=== PATIENT | female | born 1970 | race Caucasian/White ===

== ENCOUNTER 2017-03-14 18:17 | Inpatient (IN) | payer OTHER ==
[2017-03-14] MEDS: ONDANSETRON (ODT) 4 MG TAB ODT (20:49)
[2017-03-14 20:51] LABS: WHITE BLOOD COUNT 5.9 10^3/ul (4.8-10.8)
[2017-03-14 20:51] LABS: ABNORMAL IP MESSAGE 1; HEMATOCRIT 25.7 % (37.0-47.0); MEAN CORPUSCULAR HEMOGLOBIN 15.3 pg (29.0-33.0); MEAN CORPUSCULAR HGB CONC 25.7 g/dl (32.0-37.0); MEAN CORPUSCULAR VOLUME 59.6 fl (82.0-101.0); MEAN PLATELET VOLUME 8.8 fl (7.4-10.4); PLATELET COUNT 382 10^3/UL (140-415); RED BLOOD COUNT 4.31 10^6/ul (4.20-5.40); RED CELL DISTRIBUTION WIDTH 21.3 % (11.5-14.5)
[2017-03-14 21:07] LABS: ALANINE AMINOTRANSFERASE 28 IU/L (13-69); ALBUMIN 4.4 g/dl (3.3-4.9); ALBUMIN/GLOBULIN RATIO 1.25; ALKALINE PHOSPHATASE 69 IU/L (42-121); ANION GAP 18 (8-16); ASPARTATE AMINO TRANSFERASE 23 IU/L (15-46); BILIRUBIN,INDIRECT 0.2 mg/dl (0-1.1); BILIRUBIN,TOTAL 0.2 mg/dl (0.2-1.3); BLOOD UREA NITROGEN 13 mg/dl (7-20); CALCIUM 9.1 mg/dl (8.4-10.2); CARBON DIOXIDE 26 mmol/L (21-31); CHLORIDE 100 mmol/L (97-110); CREATININE 0.76 mg/dl (0.44-1.00); GLUCOSE 113 mg/dl (70-220); LIPASE 168 U/L (23-300); POTASSIUM 3.7 mmol/L (3.5-5.1); SODIUM 140 mmol/L (135-144); TOTAL PROTEIN 7.9 g/dl (6.1-8.1)
[2017-03-14 21:19] LABS: ADD UMIC YES; UR ASCORBIC ACID NEGATIVE (NEGATIVE); UR BILIRUBIN (Dip) NEGATIVE (NEGATIVE); UR BLOOD (Dip) 2+ mg/dL (NEGATIVE); UR CLARITY SLIGHTLY CLOUDY (CLEAR); UR COLOR YELLOW (YELLOW); UR GLUCOSE (Dip) NEGATIVE (NEGATIVE); UR KETONES (Dip) NEGATIVE (NEGATIVE); UR LEUKOCYTE ESTERASE (Dip) NEGATIVE Leu/ul (NEGATIVE); UR MUCUS FEW /HPF (NONE SEEN); UR NITRITE (Dip) NEGATIVE (NEGATIVE); UR RBC 8 /HPF (0-5); UR SPECIFIC GRAVITY (Dip) 1.028 (1.003-1.030); UR SQUAMOUS EPITHELIAL CELL FEW /HPF (FEW); UR TOTAL PROTEIN (Dip) 1+ mg/dl (NEGATIVE); UR UROBILINOGEN (Dip) 1+ mg/dL (NEGATIVE); UR WBC 1 /HPF (0-5)
[2017-03-14 21:24] LABS: HEMOGLOBIN 6.6 g/dl (12.0-16.0); POSITIVE DIFF @See below
[2017-03-14 21:25] LABS: PATH REVIEW? YES
[2017-03-14 21:26] LABS: ADD MAN DIFF? YES
[2017-03-14] MEDS: SOD CHLORIDE 0.9% 500 ML IV (21:50)
[2017-03-14] MEDS: SOD CHLORIDE 0.9% 250 ML IV (21:50)
[2017-03-14] MEDS: FAMOTIDINE 20 MG INJ IV (21:50)
[2017-03-14 21:55] LABS: ANISOCYTOSIS 1+ (0-0); BAND NEUTROPHILS #M 0.4 10^3/ul (0.0-0.6); BAND NEUTROPHILS % (M) 7 % (0-4); HYPOCHROMASIA 2+ (0-0); LYMPHOCYTES #M 2.4 10^3/ul (0.8-2.9); LYMPHOCYTES % (M) 41 % (15-51); MICROCYTOSIS 2+ (0-0); MONOCYTE #M 0.5 10^3/ul (0.3-0.9); MONOCYTES % (M) 10 % (0-11); OVALOCYTES 1+ (0-0); PLATELET ESTIMATE NORMAL; POIKILOCYTOSIS 1+ (0-0); SEG NEUT #M 2.5 10^3/ul (1.7-7.5); SEGMENTED NEUTROPHILS (M) % 42 % (39-77); SMUDGE%M 3 % (0-0)
[2017-03-15 01:24] LABS: IMMEDIATE SPIN CROSSMATCH 1 3
[2017-03-15] MEDS: morphine 4 MG/ML VIAL IV (03:41)
[2017-03-15] MEDS ORDERED: ACETAMINOPHEN 325 MG TAB PO (06:00)
[2017-03-15] MEDS: ONDANSETRON 4 MG INJ IV ×2 (06:13→11:09)
[2017-03-15] MEDS ORDERED: morphine 2 MG INJ IV (11:00)
[2017-03-15] MEDS: SOD CHLORIDE 0.9% 1,000 ML IV (11:11)
[2017-03-15 12:30] LABS: ADD MAN DIFF? NO
[2017-03-15 12:38] LABS: ABNORMAL IP MESSAGE 1; BASOPHILS % 0.3 % (0.0-2.0); EOSINOPHILS % 0.2 % (0.0-7.0); HEMATOCRIT 30.3 % (37.0-47.0); HEMOGLOBIN 8.8 g/dl (12.0-16.0); LYMPHOCYTES # 1.3 10^3/ul (0.8-2.9); LYMPHOCYTES % 23.2 % (15.0-51.0); MEAN CORPUSCULAR HEMOGLOBIN 19.2 pg (29.0-33.0); MEAN PLATELET VOLUME 8.9 fl (7.4-10.4); MONOCYTE # 0.5 10^3/ul (0.3-0.9); MONOCYTES % 7.8 % (0.0-11.0); NEUTROPHIL # 3.9 10^3/ul (1.6-7.5); NEUTROPHILS % 67.8 % (39.0-77.0); PLATELET COUNT 276 10^3/UL (140-415); RED BLOOD COUNT 4.59 10^6/ul (4.20-5.40); RED CELL DISTRIBUTION WIDTH 29.7 % (11.5-14.5)
[2017-03-15 12:38] LABS: WHITE BLOOD COUNT 5.7 10^3/ul (4.8-10.8)
[2017-03-15 12:57] LABS: PROTIME 14.4 Sec (11.9-14.9); PT RATIO 1.1
[2017-03-15 13:01] LABS: IRON 90 ug/dl (35-150)
[2017-03-15 13:03] LABS: ALANINE AMINOTRANSFERASE 30 IU/L (13-69); ALBUMIN 3.6 g/dl (3.3-4.9); ALBUMIN/GLOBULIN RATIO 1.16; ALKALINE PHOSPHATASE 59 IU/L (42-121); ANION GAP 11 (8-16); ASPARTATE AMINO TRANSFERASE 22 IU/L (15-46); BILIRUBIN,INDIRECT 0.9 mg/dl (0-1.1); BILIRUBIN,TOTAL 0.9 mg/dl (0.2-1.3); BLOOD UREA NITROGEN 9 mg/dl (7-20); CALCIUM 8.1 mg/dl (8.4-10.2); CARBON DIOXIDE 25 mmol/L (21-31); CHLORIDE 107 mmol/L (97-110); CREATININE 0.67 mg/dl (0.44-1.00); GLUCOSE 97 mg/dl (70-220); MAGNESIUM 1.8 mg/dl (1.7-2.5); POTASSIUM 4.1 mmol/L (3.5-5.1); SODIUM 139 mmol/L (135-144); TOTAL PROTEIN 6.7 g/dl (6.1-8.1)
[2017-03-15 13:10] LABS: % IRON SATURATION 24 % SAT (22-52); TOTAL IRON BINDING CAPACITY 379 ug/dl (241-421)
[2017-03-15] MEDS: BARIUM SULF 2% 450 ML BTL (BERRY SMOOTHIE) PO (17:30)
[2017-03-16] MEDS ORDERED: MIDAZOLAM 1 MG/ML 2 ML INJ (07:13)
[2017-03-16] MEDS ORDERED: METOCLOPRAMIDE 10 MG INJ (07:13)
[2017-03-16] MEDS ORDERED: PROPOFOL 20 ML (07:17)
[2017-03-16] MEDS ORDERED: ONDANSETRON 4 MG INJ (07:17)
[2017-03-16] MEDS ORDERED: KETOROLAC 30 MG INJ (07:17)
[2017-03-16] MEDS ORDERED: FENTAnyl 50 MCG/ML VIAL (08:04)
[2017-03-16 15:30] LABS: OCCULT BLOOD STOOL NEGATIVE (NEGATIVE)
[2017-03-17 05:51] LABS: ADD MAN DIFF? NO
[2017-03-17 05:52] LABS: WHITE BLOOD COUNT 6.3 10^3/ul (4.8-10.8)
[2017-03-17 05:52] LABS: ABNORMAL IP MESSAGE 1; BASOPHILS % 0.3 % (0.0-2.0); EOSINOPHILS # 0.1 10^3/ul (0.0-0.5); EOSINOPHILS % 1.3 % (0.0-7.0); HEMATOCRIT 31.8 % (37.0-47.0); HEMOGLOBIN 9.3 g/dl (12.0-16.0); LYMPHOCYTES # 2.6 10^3/ul (0.8-2.9); LYMPHOCYTES % 41.5 % (15.0-51.0); MEAN CORPUSCULAR HEMOGLOBIN 20.1 pg (29.0-33.0); MEAN CORPUSCULAR HGB CONC 29.2 g/dl (32.0-37.0); MEAN CORPUSCULAR VOLUME 68.7 fl (82.0-101.0); MONOCYTE # 0.4 10^3/ul (0.3-0.9); MONOCYTES % 6.1 % (0.0-11.0); NEUTROPHIL # 3.2 10^3/ul (1.6-7.5); NEUTROPHILS % 50.5 % (39.0-77.0); PLATELET COUNT 255 10^3/UL (140-415); RED BLOOD COUNT 4.63 10^6/ul (4.20-5.40)
[2017-03-17 06:23] LABS: ANION GAP 11 (8-16); BLOOD UREA NITROGEN 13 mg/dl (7-20); CALCIUM 8.6 mg/dl (8.4-10.2); CARBON DIOXIDE 26 mmol/L (21-31); CHLORIDE 106 mmol/L (97-110); CREATININE 0.75 mg/dl (0.44-1.00); GLUCOSE 84 mg/dl (70-220); SODIUM 139 mmol/L (135-144)
[2017-03-17 06:26] LABS: POSITIVE DIFF @See below
[2017-03-18] MEDS ORDERED: CEFAZOLIN 1 GM INJ (07:00)
[2017-03-18] MEDS ORDERED: EPHEDrine SULFATE 50 MG/5 ML SYG (07:00)
[2017-03-18] MEDS ORDERED: IOHEXOL 300MG/ML 30 ML BTL (19:01)
[2017-03-18] MEDS ORDERED: MIDAZOLAM 1 MG/ML 2 ML INJ (19:19)
[2017-03-18] MEDS ORDERED: FENTAnyl 50 MCG/ML VIAL (19:29)
[2017-03-18] MEDS: LIDOCAINE 2% 20 ML UROJET SYRINGE (19:54)
[2017-03-18] MEDS ORDERED: LIDOCAINE 100 MG SYRINGE (19:57)
[2017-03-18] MEDS ORDERED: PROPOFOL 20 ML (19:57)
[2017-03-18] MEDS ORDERED: ONDANSETRON 4 MG INJ (19:58)
[2017-03-18] MEDS ORDERED: METOCLOPRAMIDE 10 MG INJ (19:58)
[2017-03-18] MEDS ORDERED: METOCLOPRAMIDE 10 MG INJ IV (20:30)
[2017-03-18] MEDS ORDERED: FENTAnyl 50 MCG/ML VIAL IV (20:30)
[2017-03-18] MEDS ORDERED: EPHEDrine SULFATE 50 MG/5 ML SYG IV (20:30)
[2017-03-18] MEDS ORDERED: HYDROmorphONE (0.2 MG/ML) 10ML SYG IV (20:30)
[2017-03-18] MEDS ORDERED: PROCHLORPERAZINE 10 MG INJ IV (20:30)
[2017-03-18] MEDS ORDERED: LABETALOL HCL 20MG INJ IV (20:30)
[2017-03-18] MEDS ORDERED: ONDANSETRON 4 MG INJ IV (20:30)
[2017-03-18] MEDS ORDERED: ACETAMINOPHEN 1000MG/100ML IV 100 ML (21:36)
[2017-03-18] MEDS: hydrALAzine 20 MG INJ IV (22:03)
[2017-03-19] MEDS: HYDROCODONE/APAP (5/325) TAB PO (04:10)
[2017-03-19 06:19] LABS: ADD MAN DIFF? NO
[2017-03-19 07:09] LABS: ANION GAP 13 (8-16); BLOOD UREA NITROGEN 9 mg/dl (7-20); CALCIUM 8.4 mg/dl (8.4-10.2); CARBON DIOXIDE 24 mmol/L (21-31); CHLORIDE 107 mmol/L (97-110); CREATININE 0.69 mg/dl (0.44-1.00); GLUCOSE 96 mg/dl (70-220); MAGNESIUM 1.6 mg/dl (1.7-2.5); POTASSIUM 3.7 mmol/L (3.5-5.1); SODIUM 140 mmol/L (135-144)
[2017-03-19 07:27] LABS: WHITE BLOOD COUNT 7.2 10^3/ul (4.8-10.8)
[2017-03-19 07:27] LABS: ABNORMAL IP MESSAGE 1; BASOPHILS % 0.6 % (0.0-2.0); EOSINOPHILS % 0.6 % (0.0-7.0); HEMATOCRIT 35.3 % (37.0-47.0); HEMOGLOBIN 10.2 g/dl (12.0-16.0); LYMPHOCYTES # 1.7 10^3/ul (0.8-2.9); LYMPHOCYTES % 23.9 % (15.0-51.0); MEAN CORPUSCULAR HEMOGLOBIN 20.1 pg (29.0-33.0); MEAN CORPUSCULAR HGB CONC 28.9 g/dl (32.0-37.0); MEAN CORPUSCULAR VOLUME 69.6 fl (82.0-101.0); MEAN PLATELET VOLUME 9.5 fl (7.4-10.4); MONOCYTE # 0.5 10^3/ul (0.3-0.9); MONOCYTES % 6.3 % (0.0-11.0); NEUTROPHIL # 4.9 10^3/ul (1.6-7.5); NEUTROPHILS % 68.3 % (39.0-77.0); PLATELET COUNT 324 10^3/UL (140-415); RED BLOOD COUNT 5.07 10^6/ul (4.20-5.40)
[2017-03-19 07:55] LABS: POSITIVE DIFF @See below
[2017-03-19 12:22] LABS: IRON 16 ug/dl (35-150)
[2017-03-19 12:31] LABS: % IRON SATURATION 5 % SAT (22-52); TOTAL IRON BINDING CAPACITY 335 ug/dl (241-421)
[2017-03-20] MEDS: SOD FERRIC GLUC COMPLX 125 MG in SOD CHLORIDE 0.9% 100 ML IVPB (15:53)
[2017-03-20] MEDS: FERROUS FUMARATE (SR) TAB PO (17:26)
== END 2017-03-20 17:45 | disposition home or self-care (01) | DRG 742 ==
LOC: FTE 18:17 → MS2 03-15 05:57
PROC: 0UB97ZZ Excision of Uterus, Via Natural or Artificial Opening (ICD-10-PCS; principal; 2017-03-16 07:11)
PROC: 0UDB7ZZ Extraction of Endometrium, Via Natural or Artificial Opening (ICD-10-PCS; 2017-03-16 07:11)
PROC: 0TC78ZZ Extirpation of Matter from Left Ureter, Via Natural or Artificial Opening Endoscopic (ICD-10-PCS; 2017-03-16 07:11)
PROC: 0UJD8ZZ Inspection of Uterus and Cervix, Via Natural or Artificial Opening Endoscopic (ICD-10-PCS; 2017-03-16 07:11)
PROC: 0T778DZ Dilation of Left Ureter with Intraluminal Device, Via Natural or Artificial Opening Endoscopic (ICD-10-PCS; 2017-03-16 07:11)
PROC: 30233N1 Transfusion of Nonautologous Red Blood Cells into Peripheral Vein, Percutaneous Approach (ICD-10-PCS; 2017-03-16 07:11)
DX: N84.0 Polyp of corpus uteri (principal); N13.0 Hydronephrosis with ureteropelvic junction obstruction; I10 Essential (primary) hypertension; D62 Acute posthemorrhagic anemia; N93.8 Other specified abnormal uterine and vaginal bleeding; J06.9 Acute upper respiratory infection, unspecified; N93.9 Abnormal uterine and vaginal bleeding, unspecified
CPT/HCPCS: 36415; 36430; 71010; 74000; 74176; 74430; 76830; 76856; 80048; 80053; 81001; 82270; 83540; 83690; 83735; 84703; 85025; 85610; 85730; 86850; 86900; 86901; 86920; 87086; 88300; 88305; 96374; 96375; 99285-25